=== PATIENT | female | born 1975 | race African-American/Black ===

== ENCOUNTER 2019-09-21 18:35 | Emergency (ER) | payer OTHER ==
[~2019-09-21] VITALS: Ht 170.2 cm; Wt 77.1 kg
[~2019-09-21 18:35] MED LIST: ACID CONTROL75 MG; MAALOX ADVANCE355 M1 PO; OMEPRAZOLE40 MG; PREVACID PO; ZOFRAN 4 MG ORAL4 MG PO; ZOFRAN4 MG PO
[2019-09-21 18:57] LABS: URINE BILIRUBIN NEGATIVE (Negative); URINE BLOOD 1+ (Negative); URINE CLARITY HAZY; URINE COLOR YELLOW; URINE GLUCOSE-RANDOM NEGATIVE (Negative); URINE KETONES NEGATIVE (Negative); URINE LEUKOCYTES-REFLEX NEGATIVE (Negative); URINE NITRITE-REFLEX NEGATIVE (Negative); URINE PROTEIN NEGATIVE (Negative)
[2019-09-21 19:03] LABS: AMORPHOUS URATES Moderate /LPF (None Seen); BACTERIA-REFLEX None Seen /HPF (None Seen); CASTS None Seen /LPF (None Seen); SQUAMOUS >10 Many /LPF (0-3); URINE RBC 0-2 Rare /HPF (0-2); URINE WBC-REFLEX None Seen /HPF (0-5)
[2019-09-21 19:18] LABS: ABSOLUTE LYMPHOCYTES 4.2 thou/uL (0.8-5.3); ABSOLUTE MONOCYTES 0.8 thou/uL (0.0-1.2); BASOPHILS 0.3 %; EOSINOPHILS 0.2 %; HEMOGLOBIN 13.9 gm/dL (12.0-15.0); MCH 30.3 pg (26.0-34.0); MCHC 34.8 g/dL (28.0-37.0); MCV 87.2 fL (80.0-100.0); MONOCYTES 9.4 %; MPV 8.7 fl. (7.2-11.1); NUCLEATED RBCS 0 /100WBC; PLATELET COUNT* 269 thou/uL (150-400); POLYS 37.1 %; RBC 4.59 mil/uL (4.20-5.00); RDW-CV 13.3 % (10.5-14.5)
[2019-09-21 19:23] LABS: CALCIUM 8.7 mg/dL (8.5-10.1); CREATININE 0.9 mg/dL (0.6-1.3)
[2019-09-21 19:26] LABS: POTASSIUM 2.6 mmol/L (3.5-5.1)
[2019-09-21 19:27] LABS: ALBUMIN 3.6 g/dL (3.4-5.0); TOTAL BILIRUBIN 0.5 mg/dL (<0.1-1.0); TOTAL PROTEIN 7.8 g/dL (6.4-8.2)
[2019-09-21] MEDS ORDERED: POTASSIUM20 PO (19:36)
[2019-09-21] MEDS ORDERED: ONDANSETRON HCL4 M2 PO (19:46)
[2019-09-21] MEDS ORDERED: NORCO 5-325 TA1 EAC1 PO (19:46)
[2019-09-21] MEDS ORDERED: IBUPROFEN 800800 M1 PO (19:46)
[2019-09-21] MEDS ORDERED: FLOMAX0.4 MG PO (19:48)
[2019-09-21] MEDS ORDERED: CIPRO500 MG PO (20:00)
[2019-09-21] MEDS ORDERED: FLAGYL500 M1 PO (20:00)
[2019-09-21 22:40] VITALS: BP 119/71
--- NOTE | 2019-09-22 17:16 | EKG ---
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1975 Requested By: Anila Salter Order Number: [id number] MD: Leonidas Delarosa Measurements Intervals [place] Rate: 80 P: 8 GA: 158 QRS: 18 QRSD: 82 T: -14 QT: 512 QTc: 591 Interpretive Statements Sinus rhythm Nonspecific T abnrm, anterolateral leads Prolonged QT interval Baseline wander in lead(s) II,aVF,V2 No previous ECG available for comparison Electronically Signed On 09-22-2019 17:16:15 [employer]ACH[employer] by Leonidas Delarosa [email or web address] <ELECTRONICALLY SIGNED> By: Leonidas Delarosa MD, [facility] 09/22/19 1716 1950 1950 Leonidas Delarosa MD, FACC /EPI
== END 2019-09-21 22:40 | disposition home or self-care (01) ==
LOC: M.ERS 18:35
PROVIDERS: Nurse Practitioner Family; Physician Assistant
DX: K52.9 Noninfective gastroenteritis and colitis, unspecified (principal); E87.6 Hypokalemia; N05.9 Unspecified nephritic syndrome with unspecified morphologic changes; Z90.710 Acquired absence of both cervix and uterus; Z98.890 Other specified postprocedural states; Z88.0 Allergy status to penicillin

== ENCOUNTER 2021-05-30 21:41 | Emergency (ER) | payer OTHER ==
[~2021-05-30] VITALS: Ht 170.2 cm; Wt 72.6 kg
[~2021-05-30 21:41] MED LIST changes: +CIPRO500 MG PO; +FLAGYL500 M1 PO; +FLOMAX0.4 MG PO; +IBUPROFEN 800800 M1 PO; +NORCO 5-325 TA1 EAC1 PO; +ONDANSETRON HCL4 M2 PO; +POTASSIUM20 PO
[2021-05-30 22:13] VITALS: BP 130/89
[2021-05-30] MEDS ORDERED: HYDROCODON-ACE1 EAC8 PO (22:30)
== END 2021-05-30 22:47 | disposition home or self-care (01) ==
LOC: M.ERS 21:41
DX: S62.102A Fracture of unspecified carpal bone, left wrist, initial encounter for closed fracture (principal); Z90.710 Acquired absence of both cervix and uterus; Z98.890 Other specified postprocedural states; Z88.0 Allergy status to penicillin; W01.0XXA Fall on same level from slipping, tripping and stumbling without subsequent striking against object, initial encounter; Y93.51 Activity, roller skating (inline) and skateboarding; Y92.89 Other specified places as the place of occurrence of the external cause; Y99.8 Other external cause status